=== PATIENT | male | born 1995 | race Caucasian/White ===

== ENCOUNTER 2016-07-04 16:02 | Emergency (ER) | payer MEDICAID ==
[2016-07-04 16:11] VITALS: BP 124/63
--- NOTE | 2016-07-04 16:17 | ER Document Report ---
ED Medical Screen (RME) - General Stated Complaint: DARK STOOLS,FATIGUE,WEIGHT LOSS Mode of Arrival: Ambulatory Information source: Patient Notes: 20 y/o M presents to ED c/o dark stool, fatigue, and non-purposeful weight loss. States has lost approximately 50 lbs since 06/02/16. I have greeted and performed a rapid initial assessment of this patient. A comprehensive ED assessment and evaluation of the patient, analysis of test results and completion of the medical decision making process will be conducted by additional ED providers. TRAVEL OUTSIDE OF THE [place] IN LAST 30 DAYS: No - Related Data Allergies/Adverse Reactions: Penicillins Allergy (Verified 07/04/16 16:14) Past Medical History Pulmonary Medical History: Reports: Hx Asthma Past Surgical History: Reports: Hx Abdominal Surgery - hernia repair x4 - Immunizations Immunizations up to date: Yes Hx Diphtheria, Pertussis, Tetanus Vaccination: Yes Physical Exam - Vital signs Vitals: Temp Pulse Resp BP Pulse Ox 98.3 F 90 16 124/63 98 07/04/16 16:10 07/04/16 16:10 07/04/16 16:10 07/04/16 16:10 07/04/16 16:10 - General General appearance: Appears well, Alert In distress: None Course - Vital Signs Vital signs: Temp Pulse Resp BP Pulse Ox 98.3 F 90 16 124/63 98 07/04/16 16:10 07/04/16 16:10 07/04/16 16:10 07/04/16 16:10 07/04/16 16:10
[2016-07-04 16:43] LABS: ABSOLUTE EOSINOPHILS # (AUTO) 0.3 10^3/uL (0.0-0.6); ABSOLUTE MONOCYTES (AUTO) 0.4 10^3/uL (0.1-1.4); ABSOLUTE NEUT (AUTO) 5.8 10^3/uL (1.7-8.2); BASOPHILS % (AUTO) 0.5 % (0-2); EOSINOPHILS % (AUTO) 3.5 % (0-6); HEMOGLOBIN 15.5 g/dL (13.5-17.0); HGB HCT DIFFERENCE 0.5; MEAN CORPUSCULAR HEMOGLOBIN 30.2 pg (27.0-33.4); MEAN CORPUSCULAR HGB CONC 33.8 g/dL (32.0-36.0); MEAN CORPUSCULAR VOLUME 90 fl (80-97); MONOCYTES % (AUTO) 4.5 % (3-13); RED BLOOD COUNT 5.14 10^6/uL (4.35-5.55); RED CELL DISTRIBUTION WIDTH 13.1 % (11.5-14.0); SEGMENTED NEUTROPHILS % (AUTO) 60.5 % (42-78); WHITE BLOOD COUNT 9.6 10^3/uL (4.0-10.5)
[2016-07-04 17:02] LABS: APPEARANCE,URINE SLIGHTLY-CLOUDY; BILIRUBIN,URINE NEGATIVE (NEGATIVE); GLUCOSE, URINE NEGATIVE (NEGATIVE); KETONES,URINE NEGATIVE (NEGATIVE); LEUKOCYTE ESTERASE,URINE NEGATIVE (NEGATIVE); NITRITE,URINE NEGATIVE (NEGATIVE); PROTEIN,URINE 100 mg/dL (NEGATIVE); URINE SPECIFIC GRAVITY 1.023; UROBILINOGEN,URINE NEGATIVE mg/dL (<2.0)
[2016-07-04 17:11] LABS: ALANINE AMINOTRANSFERASE 20 U/L (10-40); ALBUMIN 4.8 g/dL (3.7-5.6); ALKALINE PHOSPHATASE 59 U/L (65-260); ANION GAP 14 (5-19); ASPARTATE AMINO TRANSFERASE 21 U/L (10-45); BILIRUBIN,TOTAL 0.7 mg/dL (0.2-1.3); BLOOD UREA NITROGEN 14 mg/dL (7-20); CALCIUM 9.5 mg/dL (8.4-10.2); CARBON DIOXIDE 32 mmol/L (22-30); CHLORIDE 100 mmol/L (98-107); CREATININE RESULT 0.94 mg/dL (0.52-1.25); GLUCOSE 69 mg/dL (75-110); POTASSIUM 4.1 mmol/L (3.6-5.0); SODIUM 145.6 mmol/L (137-145); TOTAL PROTEIN 7.2 g/dL (6.3-8.2)
--- NOTE | 2016-07-04 18:27 | ER Document Report ---
ED General - General Chief Complaint: Black/Tarry Stools Stated Complaint: DARK STOOLS,FATIGUE,WEIGHT LOSS Time seen by provider: 16:45 Mode of Arrival: Ambulatory Information source: Patient Notes: 20-year-old male who complains of a one-month history of 50 pound weight loss, midline low back pain, and intermittent black tarry stools. He also reports the past 2 weeks has noted swelling to lymph nodes in his neck and axilla. He also reports diffuse body aches, and a sensation of numbness to both lower legs. He denies fever, chills, earache, headache, visual disturbances, syncope. He thinks he's had sore throat for about 2 weeks as well. He denies chest pain, abdominal pain, dysuria, rashes, weakness to extremities, pain to extremities, hematemesis, hematochezia. He reports his mother works in healthcare because of black tarry stool she recommended he come here out of concern that this might represent GI bleeding. Physical Exam: General: Alert, appears well. HEENT: Normocephalic. Atraumatic. PERRLA. Extraocular movements intact. Oropharynx clear. Membranes moist Neck: Supple. Mildly tender adenopathy to the left neck. No nuchal rigidity Respiratory: No respiratory distress. Clear and equal breath sounds bilaterally. Cardiovascular: Regular rate and rhythm. Abdominal: Normal Inspection. Soft, non-tender. No distension. Normal Bowel Sounds. No inguinal adenopathy Back: Mildly tender to palpation over about L2-L4. No lesions are noted in this area. normal male testes ongoing no hernias no masses circumcised male Rectal normal tone and brown stool prostate nontender Extremities: Moves all four extremities. No axillary adenopathy Upper extremities: Normal inspection. Non-tender. Normal color. Normal ROM. Normal temperature. Lower extremities: Normal inspection. Non-tender. No edema. Normal color. Normal ROM. Normal temperature. Neurological: Cranial nerves III-XII grossly intact bilaterally. Strength 5/5 throughout. Sensation intact to light touch. Normal cognition. AAOx4. Normal speech. Psychological: Normal affect. Normal Mood. Skin: Warm. Dry. Normal color. TRAVEL OUTSIDE OF THE [place] IN LAST 30 DAYS: No - Related Data Allergies/Adverse Reactions: Penicillins Allergy (Verified 07/04/16 16:14) Past Medical History - General Information source: Patient - Social History Smoking Status: Former Smoker Chew tobacco use (# tins/day): No Frequency of alcohol use: Social Drug Abuse: None Family History: Other - Multiple family members with breast cancer and testicular cancer Patient has suicidal ideation: No Patient has homicidal ideation: No Pulmonary Medical History: Reports: Hx Asthma Renal/ Medical History: Denies: Hx Peritoneal Dialysis Past Surgical History: Reports: Hx Abdominal Surgery - hernia repair x4 - Immunizations Immunizations up to date: Yes Hx Diphtheria, Pertussis, Tetanus Vaccination: Yes Review of Systems - Review of Systems Constitutional: See HPI EENT: See HPI Cardiovascular: See HPI Respiratory: denies: Cough, Short of breath Gastrointestinal: denies: Abdominal pain Genitourinary: denies: Burning, Dysuria Male Genitourinary: denies: Testicular pain Musculoskeletal: Back pain Skin: denies: Rash Hematologic/Lymphatic: Enlarged lymph nodes, Swollen glands Neurological/Psychological: denies: Weakness Physical Exam - Vital signs Vitals: Temp Pulse Resp BP Pulse Ox 98.3 F 90 16 124/63 98 07/04/16 16:10 07/04/16 16:10 07/04/16 16:10 07/04/16 16:10 07/04/16 16:10 Course - Re-evaluation Re-evalutation: 07/04/16 19:03 She is now reporting that he's been having diarrhea once of twice a day for the past month. He also was about 4 day history of sore throat and pain with swallowing. Mother is now in the room and I discussed with both of them that our workup to this point has found no explanation for his reported 50 pounds of weight loss. I reassured him that we found no emergency requiring intervention tonight or hospitalization but that he should without fail follow-up with his primary care physician which mother reports is Dr. Cotton for reevaluation and possible referral. - Vital Signs Vital signs: Temp Pulse Resp BP Pulse Ox 98.3 F 90 16 124/63 98 07/04/16 16:15 07/04/16 16:10 07/04/16 16:15 07/04/16 16:10 07/04/16 16:10 - Laboratory Result Diagrams: 07/04/16 16:25 07/04/16 16:25 Laboratory results interpreted by me: 07/04/16 07/04/16 16:25 16:25 Sodium 145.6 H Carbon Dioxide 32 H Glucose 69 L Alkaline Phosphatase 59 L Urine Protein 100 H - Diagnostic Test Radiology reviewed: Reports reviewed Discharge - Discharge Clinical Impression: Weight loss, Lymphadenopathy Back pain Qualifiers: Back pain location: back pain in unspecified location Chronicity: unspecified Back pain laterality: unspecified Qualified Code(s): M54.9 - Dorsalgia, unspecified Condition: Stable Disposition: HOME, SELF-CARE Additional Instructions: Lymphadenopathy You have enlargement of lymph glands, called lymphadenopathy. Lymph glands filter tissue fluids. They help to fight infection. Most of the time, enlarged lymph glands are not serious. Lymph glands may react to a viral or bacterial infection by becoming swollen and painful. When the infection goes away, the glands shrink. Sometimes a lymph gland will remain enlarged for a long time after an infection. Occasionally, a lymph gland may be overwhelmed by infection and form an abscess. If an enlarged lymph gland has signs that are suspicious for tumor, the doctor will recommend a biopsy. A suspicious gland usually is NOT painful, grows very slowly, and is rock-hard to touch. See the doctor or return if there is increasing swelling and redness, high fever, difficulty breathing, or any other change for the worse. Referrals: AGUSTINA COTTON MD [PEDIATRICS] - Follow up in 1 week
== END 2016-07-04 19:35 | disposition home or self-care (01) ==
LOC: ER 16:02
DX: R63.4 Abnormal weight loss (principal); Z68.22 Body mass index [BMI] 22.0-22.9, adult; R59.1 Generalized enlarged lymph nodes; M54.5 Low back pain; J02.9 Acute pharyngitis, unspecified; R19.7 Diarrhea, unspecified; R19.5 Other fecal abnormalities; R20.0 Anesthesia of skin; Z88.0 Allergy status to penicillin; Z87.891 Personal history of nicotine dependence; Z80.43 Family history of malignant neoplasm of testis; Z80.3 Family history of malignant neoplasm of breast
CPT/HCPCS: 36415; 74177; 80053; 81001; 82272; 85025; 86308; 99284

== ENCOUNTER 2017-01-04 11:43 | Emergency (ER) | payer OTHER, MEDICAID ==
[2017-01-04 11:50] VITALS: BP 133/70
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
[2017-01-04] MEDS ORDERED: NAPROXEN 250 MG TABLET PO ONE (13:05)
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
--- NOTE | 2017-01-04 13:34 | RADIOLOGY REPORT (SQ) ---
EXAM DESCRIPTION: SCAPULA RIGHT COMPLETED DATE/TIME: 01/04/2017 1:16 pm REASON FOR STUDY: scapular pain COMPARISON: None. TECHNIQUE: AP and lateral views of the scapula LIMITATIONS: None. FINDINGS: No evidence for acute fracture or dislocation is seen. No other or some bony abnormalitie s are identified. No radiopaque foreign bodies are identified. IMPRESSION: No evidence for acute fracture dislocation. No other significant findings. TECHNICAL DOCUMENTATION: JOB ID: [id number] [employer]- All Rights Reserved
== END 2017-01-04 13:46 | disposition home or self-care (01) ==
LOC: ER 11:43
DX: S09.90XA Unspecified injury of head, initial encounter (principal); M54.2 Cervicalgia; M25.511 Pain in right shoulder; M79.1 Myalgia; V89.2XXA Person injured in unspecified motor-vehicle accident, traffic, initial encounter; Z88.0 Allergy status to penicillin
CPT/HCPCS: 70450; 72125; 99283

== ENCOUNTER 2018-08-19 05:55 | Emergency (ER) | payer MEDICAID, OTHER ==
[2018-08-19] MEDS ORDERED: ONDANSETRON HCL INJ/PF 4 MG/2 ML SDV IV ONE (06:29)
[2018-08-19] MEDS ORDERED: LIDOCAINE 2% VISCOUS SOLN 20 ML UDCUP PO ONE (06:29)
[2018-08-19] MEDS ORDERED: MAG HYDROX/AL HYDROX/SIMETH SUSP 30 ML UDCUP PO ONE (06:29)
[2018-08-19] MEDS ORDERED: METOCLOPRAMIDE HCL ORAL SOLN 10 MG/10 ML UDCUP PO ONE (06:29)
[2018-08-19] MEDS ORDERED: NORMAL SALINE 1000 ML 1,000 ML IV ONE (06:29)
--- NOTE | 2018-08-19 06:34 | ER Document Report ---
ED GI/ - General Chief Complaint: Abdominal Pain Stated Complaint: ABDOMINAL PAIN Time Seen by Provider: 08/19/18 06:28 Primary Care Provider: AGUSTINA COTTON MD [PEDIATRICS] - Follow up as needed Notes: 22-year-old male presents to the emerge department with nausea vomiting's right upper quadrant epigastric discomfort starting about 10:30 PM last night. Patient stated he has been vomiting all night. Multiple times. He is no ground vomiting green bile. Is been very nauseous denies fever chills. Denies chest pain denies shortness of breath he also complains of bilateral inguinal hernias. States he has had them for several years. They have not been checked. He want to have those checked. He denies any hematuria or dysuria. Denies falls or trauma denies diarrhea or constipation. Nothing seems to make his discomfort better or worse rates his discomfort as severe. It is burning in his epigast rium and right upper quadrant. TRAVEL OUTSIDE OF THE [place] IN LAST 30 DAYS: No - Related Data Allergies/Adverse Reactions: Penicillins Allergy (Verified 08/19/18 06:01) Past Medical History - Social History Smoking Status: Former Smoker Chew tobacco use (# tins/day): No Frequency of alcohol use: Occasional Drug Abuse: None Family History: Reviewed & Not Pertinent, Other - Multiple family members with breast cancer and testicular cancer Patient has suicidal ideation: No Patient has homicidal ideation: No Pulmonary Medical History: Reports: Hx Asthma Renal/ Medical History: Denies: Hx Peritoneal Dialysis Past Surgical History: Reports: Hx Abdominal Surgery - hernia repair x4 - Immunizations Immunizations up to date: Yes Hx Diphtheria, Pertussis, Tetanus Vaccination: Yes Review of Systems - Review of Systems Constitutional: denies: Chills, Fever Cardiovascular: denies: Chest pain, Dyspnea, Edema Gastrointestinal: Abdominal pain, Nausea, Vomiting. denies: Diarrhea, Constipation, Black stools, Rectal bleeding Genitourinary: denies: Dysuria, Hematuria Skin: denies: Rash -: Yes All other systems reviewed and negative Physical Exam - Vital signs Vitals: Pulse Resp BP Pulse Ox 69 20 108/61 100 08/19/18 06:01 08/19/18 06:01 08/19/18 06:01 08/19/18 06:01 - Notes Notes: GENERAL_APPEARANCE: well_nourished, alert, cooperative VITALS: reviewed, see vital signs table. HEAD: no_swelling\tenderness on the head. EYES: PERRL, EOMI, conjunctiva_clear. NOSE: no_nasal_discharge. MOUTH: (-)decreased moisture. THROAT: no_tonsilar_inflammation, no_airway_obstruction. no_lymphadenopathy NECK: supple, no_neck_tenderness, (-)thyromegaly. BACK: no_back_tenderness. CHEST_WALL: no_chest_tenderness. LUNGS: no_wheezing, no_rales, no_rhonchi, (-)accessory muscle use, good air exchange bilateral. HEART: normal_rate, normal_rhythm, normal_S1, normal_S2, (-)S3, (-)S4, no_murmur, no_rub. ABDOMEN: normal_BS, soft, epigastric and right upper quadrant_abd_tenderness, (-)guarding, (-)rebound, no_organomegaly, no_abd_masses. There are defects felt of both superficial rings inguinal only but no bulge or protruding hernia. EXTREMITIES: good pulses in all_extremities, no_swelling\tenderness in the extremities, no_edema. SKIN: warm, dry, good_color, no_rash. MENTAL_STATUS: speech_clear, oriented_X_3, normal_affect, responds_appropriately to questions. NEURO: Neg Motor or Sensory Deficits on exam, CN 2-12 intact, DTR 2+ symmetric x 4, No cerbellar signs Course - Re-evaluation Re-evalutation: 08/19/18 06:33 22-year-old male presents with burning nausea vomiting in the epigastric right upper quadrant. This may be viral in nature his abdomen is soft supple on exam Cadena sign is negative he has slight discomfort epigastric and right upper quadrant. Overall tone of the abdomen soft and supple. He states there is a long history of gallbladder disease in the family. He is concerned about this. We will get a right upper quadrant ultrasound and blood work. We will give him a GI cocktail nausea medicine and fluids. Patient also concerned about his inguinal hernia. Exam with nurse in the room is patient has defects both superficial ring looks to be prior surgery present. There is no bowel or contents protruding through the defect. Nothing to be reduced. There is no testicular tenderness. 03/05/19 09:37 Ultrasound of the right upper quadrant is negative for acute cholecystitis x- rays are negative for free air or bowel obstructive changes. Patient had a large loose stool and pooped himself in the bed. Patient was cleaned up. He likely has a viral illness with nausea vomiting and diarrhea. His abdomen is pretty soft and supple. The burning is probably from the reflux symptoms and acid. The patient will be discharged home with Zofran. I counseled him on supportive care plenty of fluids. - Vital Signs Vital signs: Temp Pulse Resp BP Pulse Ox 97.6 F 69 18 127/57 H 98 08/19/18 08:01 08/19/18 06:01 08/19/18 08:01 08/19/18 08:01 08/19/18 08:01 - Laboratory Result Diagrams: 08/19/18 06:32 08/19/18 06:32 Laboratory results interpreted by me: 08/19/18 08/19/18 08/19/18 06:32 06:32 08:00 Seg Neutrophils % 86.0 H Lymphocytes % 7.7 L Absolute Neutrophils 8.6 H BUN 23 H Urine Protein 30 H Urine Ketones TRACE H - Diagnostic Test Radiology reviewed: Reports reviewed Radiology results interpreted by me: 08/19/18 09:37 Abdomen Ultrasound 08/19/18 06:29 IMPRESSION: Grossly normal right upper quadrant ultrasound. Acute Abdomen Series 08/19/18 06:29 IMPRESSION: 1. No acute pulmonary process identified. 2. Nonobstructive bowel gas pattern. Discharge - Discharge Clinical Impression: Nausea vomiting and diarrhea Condition: Good Disposition: HOME, SELF-CARE Instructions: Antinausea Medication ([facility]), Vomiting ([facility]), Diarrhea, Nonspecific ([facility]) Prescriptions: Ondansetron [Zofran Odt 4 mg Tablet] 1 - 2 tab PO Q4H PRN #15 tab.rapdis PRN Reason: For Nausea/Vomiting Referrals: AGUSTINA COTTON MD [PEDIATRICS] - Follow up as needed
[2018-08-19 06:49] LABS: ABSOLUTE EOSINOPHILS # (AUTO) 0.2 10^3/uL (0.0-0.6); ABSOLUTE LYMPHOCYTES (AUTO) 0.8 10^3/uL (0.5-4.7); ABSOLUTE MONOCYTES (AUTO) 0.4 10^3/uL (0.1-1.4); ABSOLUTE NEUT (AUTO) 8.6 10^3/uL (1.7-8.2); BASOPHILS % (AUTO) 0.2 % (0-2); EOSINOPHILS % (AUTO) 1.7 % (0-6); HEMATOCRIT 43.6 % (37.9-51.0); HEMOGLOBIN 15.5 g/dL (13.5-17.0); LYMPHOCYTES % (AUTO) 7.7 % (13-45); MEAN CORPUSCULAR HEMOGLOBIN 31.1 pg (27.0-33.4); MEAN CORPUSCULAR HGB CONC 35.5 g/dL (32.0-36.0); MEAN CORPUSCULAR VOLUME 88 fl (80-97); MONOCYTES % (AUTO) 4.4 % (3-13); PLATELET COUNT 162 10^3/uL (150-450); RED BLOOD COUNT 4.98 10^6/uL (4.35-5.55); RED CELL DISTRIBUTION WIDTH 12.9 % (11.5-14.0); TOTAL CELLS COUNTED % (AUTO) 100 %
[2018-08-19 07:08] LABS: ALANINE AMINOTRANSFERASE 31 U/L (21-72); ALBUMIN 4.7 g/dL (3.5-5.0); ALKALINE PHOSPHATASE 70 U/L (38-126); ANION GAP 11 (5-19); ASPARTATE AMINO TRANSFERASE 23 U/L (17-59); BILIRUBIN,DIRECT 0.1 mg/dL (0.0-0.4); BILIRUBIN,TOTAL 0.8 mg/dL (0.2-1.3); BLOOD UREA NITROGEN 23 mg/dL (7-20); CARBON DIOXIDE 27 mmol/L (22-30); CHLORIDE 106 mmol/L (98-107); GLUCOSE 105 mg/dL (75-110); LIPASE 74.4 U/L (23-300); POTASSIUM 3.8 mmol/L (3.6-5.0); SODIUM 143.8 mmol/L (137-145); TOTAL PROTEIN 7.5 g/dL (6.3-8.2)
--- NOTE | 2018-08-19 07:31 | RADIOLOGY REPORT (SQ) ---
EXAM: Ultrasound abdomen limited CLINICAL DATA: 22-year-old male with right upper quadrant pain. TECHNICAL DATA: Limited sonographic imaging of the right upper quadrant was performed on 08/19/2018 at 6:59 AM. Comparison: CT abdomen and pelvis performed on 07/04/2016. FINDINGS: The liver is normal in size and configuration. The liver demonstrates normal echogenicity. No focal hepatic abnormalities are identified. Doppler imaging reveals patency of the portal vein and normal hepatopedal flow. The gallbladder is well distended and normal in appearance. The gallbladder wall measures 2 mm in diameter which is within normal limits. No sonographic Cadena sign was detected by the technologist. There is no evidence of cholelithiasis or whit sludge. There is no evidence of biliary ductal dilatation. The common bile duct measures 1.7 mm in diameter. The right kidney is normal in size, shape and echogenicity without hydronephrosis or definite nephrolithiasis. The right kidney measures 9.9 cm in length. There is no evidence of free fluid in the abdomen. The aorta and inferior vena cava are grossly unremarkable. There is normal tapering of the distal aorta. The pancreas is poorly visualized due to overlying bowel gas. The visualized portions of the pancreas are grossly unremarkable. IMPRESSION: Grossly normal right upper quadrant ultrasound.
--- NOTE | 2018-08-19 07:53 | RADIOLOGY REPORT (SQ) ---
EXAM DESCRIPTION: XR ABDOMEN SUPINE AND ERECT WITH CHEST (ABD ACUTE SERIES) COMPLETED DATE/TME: 08/19/2018 06:29 CLINICAL HISTORY: RUQ PAIN COMPARISON: 07/04/2016 FINDINGS: Single frontal view of the chest with upright and supine views of the abdomen. The cardiomediastinal silhouette has normal size and contour. No consolidation, pneumothorax, or pleural effusion. No acute osseous abnormalities. Scattered air-filled loops of nondilated large and small bowel throughout the abdomen. No free intraperitoneal air. No abnormal calcifications. No organomegaly. IMPRESSION: 1. No acute pulmonary process identified. 2. Nonobstructive bowel gas pattern.
[2018-08-19 08:29] LABS: APPEARANCE,URINE CLEAR; BILIRUBIN,URINE NEGATIVE (NEGATIVE); COLOR,URINE YELLOW; GLUCOSE, URINE NEGATIVE (NEGATIVE); KETONES,URINE TRACE mg/dL (NEGATIVE); LEUKOCYTE ESTERASE,URINE NEGATIVE (NEGATIVE); NITRITE,URINE NEGATIVE (NEGATIVE); PROTEIN,URINE 30 mg/dL (NEGATIVE); URINE SPECIFIC GRAVITY 1.023; UROBILINOGEN,URINE NEGATIVE mg/dL (<2.0)
[2018-08-19 10:27] VITALS: BP 114/56
== END 2018-08-19 10:34 | disposition home or self-care (01) ==
LOC: ER 05:55
DX: R11.2 Nausea with vomiting, unspecified (principal); R19.7 Diarrhea, unspecified; R10.11 Right upper quadrant pain; R10.13 Epigastric pain; R15.9 Full incontinence of feces; J45.909 Unspecified asthma, uncomplicated; Z88.0 Allergy status to penicillin; Z87.891 Personal history of nicotine dependence; Z83.79 Family history of other diseases of the digestive system
CPT/HCPCS: 99284; 96361; 96374; 36415; 83690; 85025; 80053; 81001; 74022; 76705; J3490; J2405; J7030

== ENCOUNTER 2019-02-21 04:53 | Emergency (ER) | payer SELFPAY ==
[2019-02-21 06:28] LABS: ABSOLUTE EOSINOPHILS # (AUTO) 0.1 10^3/uL (0.0-0.6); ABSOLUTE LYMPHOCYTES (AUTO) 1.4 10^3/uL (0.5-4.7); ABSOLUTE MONOCYTES (AUTO) 0.4 10^3/uL (0.1-1.4); ABSOLUTE NEUT (AUTO) 1.8 10^3/uL (1.7-8.2); BASOPHILS % (AUTO) 0.2 % (0-2); EOSINOPHILS % (AUTO) 1.5 % (0-6); HEMATOCRIT 40.1 % (37.9-51.0); HEMOGLOBIN 13.7 g/dL (13.5-17.0); LYMPHOCYTES % (AUTO) 37.9 % (13-45); MEAN CORPUSCULAR HEMOGLOBIN 30.9 pg (27.0-33.4); MEAN CORPUSCULAR HGB CONC 34.1 g/dL (32.0-36.0); MEAN CORPUSCULAR VOLUME 91 fl (80-97); MONOCYTES % (AUTO) 10.7 % (3-13); PLATELET COUNT 107 10^3/uL (150-450); RED BLOOD COUNT 4.42 10^6/uL (4.35-5.55); RED CELL DISTRIBUTION WIDTH 12.3 % (11.5-14.0); SEGMENTED NEUTROPHILS % (AUTO) 49.7 % (42-78); TOTAL CELLS COUNTED % (AUTO) 100 %; WHITE BLOOD COUNT 3.6 10^3/uL (4.0-10.5)
[2019-02-21] MEDS ORDERED: ONDANSETRON HCL INJ/PF 4 MG/2 ML SDV IV ONE (08:15)
[2019-02-21] MEDS ORDERED: NORMAL SALINE 1000 ML 1,000 ML IV ONE (08:15)
[2019-02-21 08:25] LABS: ALBUMIN 3.9 g/dL (3.5-5.0); ALKALINE PHOSPHATASE 59 U/L (38-126); ANION GAP 9 (5-19); ASPARTATE AMINO TRANSFERASE 28 U/L (17-59); BILIRUBIN,DIRECT 0.2 mg/dL (0.0-0.4); BILIRUBIN,TOTAL 0.2 mg/dL (0.2-1.3); BLOOD UREA NITROGEN 10 mg/dL (7-20); CALCIUM 9.1 mg/dL (8.4-10.2); CARBON DIOXIDE 27 mmol/L (22-30); CHLORIDE 105 mmol/L (98-107); GLUCOSE 91 mg/dL (75-110); POTASSIUM 3.9 mmol/L (3.6-5.0); TOTAL PROTEIN 6.9 g/dL (6.3-8.2)
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
[2019-02-21 09:24] LABS: APPEARANCE,URINE CLEAR; BILIRUBIN,URINE NEGATIVE (NEGATIVE); COLOR,URINE STRAW; GLUCOSE, URINE NEGATIVE (NEGATIVE); KETONES,URINE NEGATIVE (NEGATIVE); LEUKOCYTE ESTERASE,URINE NEGATIVE (NEGATIVE); NITRITE,URINE NEGATIVE (NEGATIVE); PROTEIN,URINE NEGATIVE (NEGATIVE); URINE SPECIFIC GRAVITY 1.034; UROBILINOGEN,URINE NEGATIVE mg/dL (<2.0)
--- NOTE | 2019-02-21 09:46 | RADIOLOGY REPORT (SQ) ---
EXAM DESCRIPTION: CT ABD/PELVIS WITH IV ONLY COMPLETED DATE/TIME: 02/21/2019 9:03 am REASON FOR STUDY: rectal pain, diarrhea COMPARISON: None. TECHNIQUE: CT scan of the abdomen and pelvis performed using helical scanning technique with dynamic intravenous contrast injection. No oral contrast. Images reviewed with lung, soft tissue, and bone windows. Reconstructed coronal and sagittal MPR images reviewed. Delayed images for evaluation of the urinary system also acquired. All images stored on PACS. All CT scanners at this facility use dose modulation, iterative reconstruction, and/or weight based d osing when appropriate to reduce radiation dose to as low as reasonably achievable (ALARA). [facility]: Dose Right [facility]: CareDose [facility]: Dose Right [facility]: Teradose 4D [facility]: [employer] CONTRAST TYPE AND DOSE: contrast/concentration: Isovue 350.00 mg/ml; Total Contrast Delivered: 97.0 ml; Total Saline Delivered: 72.0 ml RENAL FUNCTION: GFR > 60. RADIATION DOSE: CT Rad equipment meets quality standard of care and radiation dose reduction techniq ues were employed. CTDIvol: 6.5 - 9.0 mGy. DLP: 891 mGy-cm.. LIMITATIONS: None. FINDINGS: LOWER CHEST: No significant findings. No nodules or infiltrates. LIVER: Normal size. No masses. No dilated ducts. SPLEEN: Normal size. No focal lesions. PANCREAS: No masses. No significant calcifications. No adjacent inflammation or peripancreatic fluid collections. Pancreatic duct not dilated. GALLBLADDER: No identified stones by CT criteria. No inflammatory changes to suggest cholecystitis. ADRENAL GLANDS: No significant masses or asymmetry. RIGHT KIDNEY AND URETER: No solid masses. No significant calcifications. No hydronephrosis or hyd roureter. LEFT KIDNEY AND URETER: No solid masses. No significant calcifications. No hydronephrosis or hydr oureter. AORTA AND VESSELS: No aneurysm. No dissection. Renal arteries, SMA, celiac without stenosis. RETROPERITONEUM: No retroperitoneal adenopathy, hemorrhage or masses. BOWEL AND PERITONEAL CAVITY: No masses or inflammatory changes. No free fluid or peritoneal masses. APPENDIX: Normal. PELVIS: No mass. No free fluid. Normal bladder. ABDOMINAL WALL: No masses. No hernias. BONES: No significant or acute findings. OTHER: No other significant finding. IMPRESSION: NO SIGNIFICANT OR ACUTE FINDING IN THE ABDOMEN OR PELVIS ON CT SCAN WITH IV CONTRAST. TECHNICAL DOCUMENTATION: JOB ID: [id number] Quality ID # [id number]: Final reports with documentation of one or more dose reduction techniques (e.g., Au tomated exposure control, adjustment of the mA and/or kV according to patient size, use of iterative reconstruction technique) 2010 [employer]- All Rights Reserved Reading location - IP/workstation name: [email or web address]
[2019-02-21] MEDS ORDERED: KETOROLAC TROMETHAMINE INJ/PF 30 MG/1 ML SDV IV ONE (10:22)
[2019-02-21] MEDS ORDERED: ACETAMINOPHEN 325 MG TABLET PO ONE (11:17)
[2019-02-21 12:58] VITALS: BP 114/61
== END 2019-02-21 12:58 | disposition home or self-care (01) ==
LOC: ER 04:53
DX: K92.1 Melena (principal); K62.89 Other specified diseases of anus and rectum; R19.7 Diarrhea, unspecified; R11.2 Nausea with vomiting, unspecified; R53.1 Weakness; J45.909 Unspecified asthma, uncomplicated; R61 Generalized hyperhidrosis; R50.9 Fever, unspecified; R10.819 Abdominal tenderness, unspecified site; Z88.0 Allergy status to penicillin
CPT/HCPCS: 99284; 96361; 96374; 96375; 36415; 87045; 87205; 85025; 80053; 81001; 87493; 74177; J1885; J2405; J7030

== ENCOUNTER → 2020-05-31 | Outpatient (CLI) | payer BC ==
[2020-05-31 18:43] LABS: APPEARANCE,URINE CLEAR; BILIRUBIN,URINE NEGATIVE (NEGATIVE); COLOR,URINE YELLOW; GLUCOSE, URINE NEGATIVE (NEGATIVE); KETONES,URINE NEGATIVE (NEGATIVE); LEUKOCYTE ESTERASE,URINE NEGATIVE (NEGATIVE); NITRITE,URINE NEGATIVE (NEGATIVE); PROTEIN,URINE 100 mg/dL (NEGATIVE); URINE SPECIFIC GRAVITY 1.028; UROBILINOGEN,URINE NEGATIVE mg/dL (<2.0)
[2020-05-31 20:15] LABS: CHLAM PCR NOT DETECTED (NOT DETECT)
== END ==
LOC: OD 15:57
PROVIDERS: ATTEND Nurse Practitioner Family
DX: R36.9 Urethral discharge, unspecified (principal); Z86.19 Personal history of other infectious and parasitic diseases
CPT/HCPCS: 81001; 86592; 87491; 87591